=== PATIENT | male | born 1985 | race Caucasian/White ===

== ENCOUNTER 2021-09-28 11:28 | Emergency (ER) | payer MEDICAID ==
[~2021-09-28] VITALS: Ht 167.6 cm; Wt 86.2 kg
[2021-09-28 11:56] VITALS: BP_SYST 148
[2021-09-28] MEDS ORDERED: LIDOCAINE 1% 10 MG/ML, 20 ML MDV INJ ONE (12:15)
[2021-09-28] MEDS ORDERED: BACITRACIN 1 GM OINT TP ONE (13:46)
[2021-09-28 13:51] VITALS: BP_SYST 133
== END 2021-09-28 13:51 | disposition home or self-care (01) ==
LOC: SED 11:28
DX: S01.111A Laceration without foreign body of right eyelid and periocular area, initial encounter (principal); S09.90XA Unspecified injury of head, initial encounter; Z79.899 Other long term (current) drug therapy; Y04.0XXA Assault by unarmed brawl or fight, initial encounter; Y93.89 Activity, other specified; Y92.89 Other specified places as the place of occurrence of the external cause; Y99.8 Other external cause status
CPT/HCPCS: 70450-TC; 70480; 76376; 99284

== ENCOUNTER 2021-10-23 09:04 | Emergency (ER) | payer MEDICAID ==
[~2021-10-23] VITALS: Ht 167.6 cm; Wt 86.2 kg
[2021-10-23 09:05] VITALS: BP_SYST 123
--- NOTE | 2021-10-23 09:05 | NUR ---
Patient to ER bed 7 to gown for evaluation. Side rails up. Report given to EMILIANO LIU.
--- NOTE | 2021-10-23 09:08 | NUR ---
Patient came in for suture removal on his right eyebrow. Patient also reported psoriasis as he had it over a year now.
--- NOTE | 2021-10-23 09:10 | NUR ---
ER at bedside examining patient.
[2021-10-23] MEDS ORDERED: HYDC2.5% TP (09:23)
[2021-10-23 09:49] VITALS: BP_SYST 123
--- NOTE | 2021-10-23 09:51 | NUR ---
Patient given written and verbal discharge instructions and verbalizes understanding. Dr Duran discussed with patient the results and treatment provided. Patient in stable condition. ID arm band removed. Rx of Hydrocortisone given. Patient educated on pain management and to follow up with PMD. Pain Scale . Opportunity for questions provided and answered. Medication side effect fact sheet provided.
== END 2021-10-23 09:51 | disposition home or self-care (01) ==
LOC: SED 09:04
DX: L40.9 Psoriasis, unspecified (principal); Z48.02 Encounter for removal of sutures
CPT/HCPCS: 99282

== ENCOUNTER 2021-12-21 15:01 | Emergency (ER) | payer MEDICAID ==
[~2021-12-21] VITALS: Ht 167.6 cm; Wt 81.6 kg
[~2021-12-21 15:01] MED LIST: HYDC2.5% TP
[2021-12-21 15:37] VITALS: BP_SYST 141
[2021-12-21] MEDS ORDERED: [UNRECOGNIZED DRUG - CODE] TP (18:22)
[2021-12-21 18:27] VITALS: BP_SYST 133
== END 2021-12-21 18:28 | disposition home or self-care (01) ==
LOC: SED 15:01
DX: L40.9 Psoriasis, unspecified (principal)
CPT/HCPCS: 99281